=== PATIENT | male | born 1985 | race African-American/Black ===

== ENCOUNTER 2019-11-14 22:42 | Emergency (ER) | payer SELFPAY ==
[2019-11-15] MEDS ORDERED: NORMAL SALINE 1000 ML 1,000 ML IV ONE (01:21)
[2019-11-15] MEDS ORDERED: METOCLOPRAMIDE HCL INJ/PF 10 MG/2 ML SDV IV ONE (01:21)
[2019-11-15] MEDS ORDERED: DIPHENHYDRAMINE HCL 50 MG/ML VIAL IV ONE (01:21)
[2019-11-15] MEDS ORDERED: KETOROLAC TROMETHAMINE INJ/PF 30 MG/1 ML SDV IV ONE (01:21)
--- NOTE | 2019-11-15 01:24 | ER Document Report ---
ED Headache - General Chief Complaint: Headache Stated Complaint: HEADACHE Time Seen by Provider: 11/15/19 01:11 Notes: Patient is a 34-year-old male that comes to the emergency department for chief complaint of headache that started during the afternoon while he was at work. He states that the headache started on very mild and then progressively worsened over the course of the afternoon and evening, he states now it is a throbbing headache with light sensitivity and nausea. He denies neck pain, injury to the head or neck, fever, focal numbness or weakness, vomiting. He states that he rarely gets headaches like this but he has had a headaches like this in the past. He takes no daily medications, denies any past medical history, denies recreational drugs. - Related Data Allergies/Adverse Reactions: No Known Drug Allergies Allergy (Verified 11/15/19 01:54) Past Medical History - General Information source: Patient - Social History Smoking Status: Current Some Day Smoker Drug Abuse: None Lives with: Family Family History: Reviewed & Not Pertinent Patient has homicidal ideation: No Surgical Hx: Negative - Immunizations Hx Diphtheria, Pertussis, Tetanus Vaccination: Yes Review of Systems - Review of Systems Constitutional: No symptoms reported EENT: No symptoms reported Cardiovascular: No symptoms reported Respiratory: No symptoms reported Gastrointestinal: See HPI Genitourinary: No symptoms reported Male Genitourinary: No symptoms reported Musculoskeletal: No symptoms reported Skin: No symptoms reported Hematologic/Lymphatic: No symptoms reported Neurological/Psychological: See HPI Physical Exam - Vital signs Vitals: Temp Pulse Resp BP Pulse Ox 98.6 F 68 17 116/67 100 11/14/19 22:59 11/14/19 22:59 11/14/19 22:59 11/14/19 22:59 11/14/19 22:59 - Notes Notes: GENERAL: Patient appears slightly uncomfortable, squinting his eyes HEAD: Normocephalic, atraumatic. EYES: Pupils equal, round, and reactive to light. Extraocular movements intact. Mild photophobia ENT: Oral mucosa moist, tongue midline. Oropharynx unremarkable. Airway patent. NECK: Full range of motion. Supple. Trachea midline. No lymphadenopathy. No nuchal rigidity. LUNGS: Clear to auscultation bilaterally, no wheezes, rales, or rhonchi. No respiratory distress. Non-tender chest wall. HEART: Regular rate and rhythm. No murmur ABDOMEN: Soft, non-tender. Non-distended. EXTREMITIES: Moves all 4 extremities spontaneously. No edema, normal radial and dorsalis pedis pulses bilaterally. No cyanosis. BACK: no cervical, thoracic, lumbar midline tenderness. No saddle anesthesia, normal distal neurovascular exam. Moves all extremities in full range of motion. NEUROLOGICAL: Alert and oriented x3. Normal speech. Cranial nerves II through XII grossly intact. Strength 5/5 in all extremities. PSYCH: Normal affect, normal mood. SKIN: Warm, dry, normal turgor. No rashes or lesions noted. Course - Re-evaluation Re-evalutation: Patient with photophobia, appears uncomfortable, does not appear to be in severe distress. No neurological deficits. Unremarkable neck exam, no nuchal rigidity, unremarkable vital signs. Headache was slowly progressive and not maximal at onset, symptoms are very suggestive of migraine. Discussed with patient, we will attempt treatment for suspected migraine first and reevaluate. On evaluation patient sleeping, easily aroused, he states his headache is completely gone, he is smiling and well-appearing. Very low suspicion of any emergent intracranial abnormality. Discussed home medications, follow-up, and return precautions. Patient and significant other state appreciation and agreement. Stable and well-appearing at time of discharge. - Vital Signs Vital signs: Temp Pulse Resp BP Pulse Ox 98.2 F 68 16 110/72 100 11/15/19 03:32 11/15/19 03:32 11/15/19 03:32 11/15/19 03:32 11/15/19 03:32 Discharge - Discharge Clinical Impression: Headache Qualifiers: Headache type: unspecified Headache chronicity pattern: acute headache Intractability: not intractable Qualified Code(s): R51 - Headache Condition: Stable Disposition: HOME, SELF-CARE Additional Instructions: Your evaluation, symptoms, and resolution with treatment are very suggestive of a migraine. You can take the prescribed medication if needed for headaches in the future. Follow-up with primary care for additional evaluation and management of migraines. Return if you worsen including returned or severe headache, vomiting, fever, or any other concerning or worsening symptoms. Prescriptions: Butalb/Acetaminophen/Caffeine [Fioricet (50-325-40 mg) Tablet] 1 tab PO Q4HP PRN #20 tab PRN Reason: Forms: Return to Work
[2019-11-15 03:32] VITALS: BP 110/72
== END 2019-11-15 03:32 | disposition home or self-care (01) ==
LOC: ER 22:42
DX: R51 Headache (principal); R11.0 Nausea; F17.200 Nicotine dependence, unspecified, uncomplicated
CPT/HCPCS: 99283; 96361; 96374; 96375; J1200; J1885; J2765; J7030